=== PATIENT | female | born 1975 | race Caucasian/White ===

== ENCOUNTER 2021-02-17 14:16 | Outpatient (REF) | payer BC, SELFPAY ==
[2021-02-17 22:09] LABS: Anion Gap 7.9 mmol/L (3-11); BUN 13 mg/dL (7-18); CO2 28.1 mmol/L (21.0-32.0); CREATININE 0.9 mg/dL (0.55-1.02); Calcium 9.3 mg/dL (8.5-10.1); Calculated LDL 136 mg/dL (<100); Chloride 104 mmol/L (98-107); Cholesterol 216 mg/dL (<200); Glucose 79 mg/dL (74-106); HDL Cholesterol 41 mg/dL (40-60); Potassium 3.9 mmol/L (3.5-5.1); Sodium 140 mmol/L (136-145); Triglyceride 198 mg/dL (<150)
[2021-02-17 22:13] LABS: Hemoglobin A1C 5.5 % (<5.7)
[2021-02-19 10:36] LABS: Hepatitis C Ab w Rflx HCV PCR Negative (Negative)
== END 2021-02-17 14:17 | disposition home or self-care (01) ==
LOC: LBN 14:16
PROVIDERS: Visit Provider Family Medicine
DX: Z13.1 Encounter for screening for diabetes mellitus (principal); R03.0 Elevated blood-pressure reading, without diagnosis of hypertension; Z11.59 Encounter for screening for other viral diseases; Z13.220 Encounter for screening for lipoid disorders
CPT/HCPCS: 80048; 80061; 86803; 83036

== ENCOUNTER 2021-04-03 19:15 | Outpatient (REF) | payer BC, SELFPAY ==
[2021-04-03 19:38] LABS: TSH (W/Ref FT4) 1.03 uIU/mL (0.36-3.74)
== END 2021-04-03 19:16 | disposition home or self-care (01) ==
LOC: NCHCN 19:15
PROVIDERS: PCP Family Medicine; Visit Provider Family Medicine
DX: I10 Essential (primary) hypertension (principal)
CPT/HCPCS: 84443

== ENCOUNTER 2021-05-08 02:23 | Outpatient (CLI) | payer BC, SELFPAY ==
--- NOTE | 2021-05-08 12:47 | DI.MAMMO_ITS ---
Exam(s) MAMMO SCREENING EXAM: MAMMO SCREENING CLINICAL HISTORY: SCREENING, PREVENTIVE CARE EXAM,Z00.00. TECHNIQUE: Bilateral full field digital CC and MLO mammographic images were obtained with 3D tomosyn thesis and utilizing computer aided detection (CAD). COMPARISON: Prior outside mammograms dating back to 2011, the most recent being September 2015 . FINDINGS: There has been no significant change in the appearance and distribution of the fibroglandular tissue. Asymmetric posteriorly located tissue in the left breast is stable in appearance, unchanged from prio r studies. There are no new spiculated masses nor malignant appearing microcalcification groups. There is no significant architectural distortion nor skin thickening-retraction. IMPRESSION: No radiographic evidence of malignancy. BI-RADS Category 2 - Benign Findings Breast Density - Category B - Scattered areas of fibroglandular density Breast density Category C or D implies that the patient has dense breast tissue. Dense breast tissue can make it harder to find cancer on a mammogram. Dense breast tissue is also associated with an incr eased risk of breast cancer. This information about the result of the mammogram report was provided to the patient to raise their awareness. Use this report when you speak with the patient about their risks for breast cancer, which includes their family history. At that time, you may recommend additional screening tests (Ultrasoun d or MRI) as these tests may add significant information. A negative radiographic report should not delay biopsy if a dominant or clinically suspicious mass is present. Up to ten percent of cancers are not identified on mammography. A negative report may reinforce clinical impression. Adenosis and dense breasts may obscure an underlying neoplasm. False positive reports average 6 to 10%. Patient will receive a letter notifying them of these results.
== END 2021-05-08 02:43 ==
PROVIDERS: PCP Family Medicine; Visit Provider Family Medicine
DX: Z12.31 Encounter for screening mammogram for malignant neoplasm of breast (principal)
CPT/HCPCS: 77063; 77067

== ENCOUNTER 2022-06-11 17:54 | Outpatient (REF) | payer BC, SELFPAY ==
--- NOTE | 2022-06-11 17:35 | SKI_PTH ---
PATIENT: Trinity Romano LOC: [facility] U#:[id number] AGE/SX: 47/F ROOM: RE06/11/[address]: Harjinder Apodaca : 1975 BED: DIS: 06/11/2022 SPEC #: [id number] RECD: 06/11/22 18:38 STATUS: RAUL REQ #: [id number] BEVERLY: 06/11/22 17:[address]: Harjinder Apodaca DEPT: Surgical Specimen RECD BY: Ruby Diaz Tissues: 1 - SKIN CYST/TAG/DEBRIDEMENT Procedures: SKIN LEVEL 4 Comments: [id number]
--- NOTE | 2022-06-11 17:45 | PAPFT_PTH ---
PATIENT: Trinity Romano LOC: [facility] U#:[id number] AGE/SX: 47/F ROOM: RE06/11/[address]: Harjinder Apodaca : 1975 BED: DIS: 06/11/2022 SPEC #: [id number] RECD: 06/11/22 18:36 STATUS: RAUL REQ #: [id number] BEVERLY: 06/11/22 17:[address]: Harjinder Apodaca DEPT: [facility] Cytology RECD BY: Ruby Diaz Tissues: 1 - CX/ENDOCX FOR PAP SMEARS Procedures: PAP THIN PREP/UVM Screening HPV DNA PROBE Comments: [id number]
== END 2022-06-11 17:55 | disposition home or self-care (01) ==
LOC: NCHCN 17:54
PROVIDERS: PCP Family Medicine; Visit Provider Family Medicine
DX: Z12.4 Encounter for screening for malignant neoplasm of cervix (principal); Z11.51 Encounter for screening for human papillomavirus (HPV); L57.0 Actinic keratosis; R87.810 Cervical high risk human papillomavirus (HPV) DNA test positive
CPT/HCPCS: 88142; 87624; 88304; 88305

== ENCOUNTER 2023-04-07 22:37 | Outpatient (REF) | payer BC, SELFPAY ==
[2023-04-07 19:08] LABS: Abs Immature Grans 0.01 10^3/uL (0.0-0.06); Absolute Basophil Count 0.05 10^3/uL (0.0-0.2); Absolute Eosinophil Count 0.09 10^3/uL (0.0-0.7); Absolute Lymphocyte Count 2.35 10^3/uL (1.2-3.4); Absolute Neutrophil Count 5.93 10^3/uL (1.2-6.7); Basophils % 0.6; HCT 44.9 % (36.0-46.0); HGB 15.1 g/dL (11.2-15.7); Immature Grans % 0.1; Lymphocytes % 26.6; MCH 29.9 pg (27.0-33.0); MCHC 33.6 % (32.0-36.0); MCV 89 fL (80-95); MPV 10.7 fL (8.0-11.0); Monocytes % 4.5; Neutrophils % 67.2; Platelet Count 301 10^3/uL (130-400); RBC 5.05 10^6/uL (3.93-5.22); RDW 12.8 % (11.7-14.6); RDW-SD 42.4 fL; WBC 8.83 10^3/uL (4.4-10.8)
[2023-04-07 19:26] LABS: Anion Gap 6.7 mmol/L (3-11); BUN 17 mg/dL (7-18); CO2 26.3 mmol/L (21.0-32.0); Calcium 8.6 mg/dL (8.5-10.1); Chloride 105 mmol/L (98-107); Estimated GFR 69.49 (mL/min/1.73m2); FREE T4 0.98 ng/dL (0.76-1.46); Glucose 94 mg/dL (74-106); Potassium 4.5 mmol/L (3.5-5.1); Sodium 138 mmol/L (136-145); TSH 1.14 uIU/mL (0.36-3.74)
[2023-04-07 20:07] LABS: Vitamin B12 647 pg/mL (193-986)
[2023-04-08 21:36] LABS: HIV-1/2 Ag & Ab Screen Negative (Negative)
== END 2023-04-07 22:38 | disposition home or self-care (01) ==
LOC: NCHCN 22:37
PROVIDERS: PCP Family Medicine; Visit Provider Family Medicine
DX: Z00.00 Encounter for general adult medical examination without abnormal findings (principal)
CPT/HCPCS: 80048; 87389; 82607; 83735; 84439; 84443; 85025

== ENCOUNTER → 2023-04-11 00:55 | Outpatient (CLI) | payer BC, SELFPAY ==
--- NOTE | 2023-04-11 09:10 | DI.MAMMO_ITS ---
Exam(s) MAMMO SCREENING EXAM: MAMMO SCREENING CLINICAL HISTORY: SCREENING,Z12.31 TECHNIQUE: Bilateral full field digital CC and MLO mammographic images were obtained with 3D tomosyn thesis and utilizing computer aided detection (CAD). COMPARISON: Available for comparison. FINDINGS: Masses/Architectural Distortion: None seen. Microcalcifications: No suspicious pleomorphic-type are seen. Skin Thickening/Nipple Retraction: None. IMPRESSION: 1. No significant interval change with no specific features of malignancy noted. 2. Unless there is more urgent need, screening mammography is recommended, as per [employer] guidelines. BI-RADS Category 1 - Negative Breast Density - Category B - Scattered areas of fibroglandular density Breast density category C or D implies that the patient has dense breast tissue. Dense breast tissue is very common and is not abnormal but dense breast tissue can make it harder to find cancer on a ma mmogram. Also, dense breast tissue may increase their breast cancer risk. This information about the result of the mammogram report was provided to the patient to raise their awareness. Use this report when you speak with the patient about their risks for breast cancer, which includes their family hist ory. At that time, you may recommend for more screening tests (Ultrasound or MRI) as they might be us eful based on their risk. A negative radiographic report should not delay biopsy if a dominant or clinically suspicious mass is present. Up to ten percent of cancers are not identified on mammography. A negative report may reinforce clinical impression. Adenosis and dense breasts may obscure an underlying neoplasm. False positive reports average 6 to 10%. Patient will receive a letter notifying them of these results.
== END ==
PROVIDERS: PCP Family Medicine; Visit Provider Family Medicine
DX: Z12.31 Encounter for screening mammogram for malignant neoplasm of breast (principal)
CPT/HCPCS: 77063; 77067

== ENCOUNTER 2023-06-24 16:16 | Outpatient (REF) | payer BC, SELFPAY ==
--- NOTE | 2023-06-24 09:55 | SKI_PTH ---
PATIENT: Trinity Romano LOC: [facility] U#:[id number] AGE/SX: 48/F ROOM: RE06/24/[address]: ZOHAIB Noe : 1975 BED: DIS: 06/24/2023 SPEC #: [id number] RECD: 06/24/23 17:20 STATUS: RAUL REDeloris #: [id number] BEVERLY: 06/24/23 09:[address]: Brayan Vidales DEPT: Surgical Specimen RECD BY: Ruby Diaz ENTERED: 06/24/23 17:21 SP TYPE: DAVY HENDERSON DR: Harjinder Apodaca Tissues: 1 - SKIN BIOPSY(SHAVE/PUNCH) Procedures: SKIN LEVEL 4 Comments: [id number]
== END 2023-06-24 16:17 | disposition home or self-care (01) ==
LOC: LBN 16:16
PROVIDERS: PCP Family Medicine; Visit Provider Physician Assistant
DX: L90.5 Scar conditions and fibrosis of skin (principal); L91.8 Other hypertrophic disorders of the skin
CPT/HCPCS: 88305